=== PATIENT | female | born 1995 | race Caucasian/White ===

== ENCOUNTER 2017-05-05 06:14 | Emergency (ER) | payer BC ==
[~2017-05-05] VITALS: Ht 170.2 cm; Wt 60.0 kg
[~2017-05-05 06:14] MED LIST: MOTRIN 600600 MG/TAB PO; PRENATAL1 TA1 PO
[2017-05-05] MEDS ORDERED: ZOFRAN ODT4 MG PO (06:19)
[2017-05-05 07:08] LABS: BASO % 0.4 % (0.0-2.0); EOS % 0.4 % (0-4.0); GRAN # 6.3 (1.4-6.5); GRAN % 73.2 % (42.2-75.2); HEMOGLOBIN 12.4 g/dl (12.5-16.0); LYMPH # 1.7 (1.2-3.4); LYMPH % 19.6 % (20.0-51.0); MEAN CELL VOLUME 85 fl (80.0-100.0); MEAN CORPUSCULAR HEMOGLOBIN 31 pg (27.0-31.0); MEAN CORPUSCULAR HGB CONC 36 g/dl (33.0-37.0); MONO # 0.5 (0.1-0.6); PLATELET COUNT 230 K/mm3 (130-400); RED BLOOD COUNT 4.05 M/mm3 (4.10-5.30); REDCELL DISTRIBUTION WIDTH-CV 12.2 % (11.5-14.5); WHITE BLOOD COUNT 8.5 K/mm3 (4.8-10.8)
[2017-05-05 07:09] LABS: HEMATOCRIT 34.4 % (37.0-47.0)
[2017-05-05 07:12] VITALS: BP 111/73; PULSE 104; TEMP 98.8
== END 2017-05-05 07:22 | disposition home or self-care (01) ==
LOC: COL.ER 06:14
PROVIDERS: Family Medicine
DX: O20.0 Threatened abortion (principal); Z3A.12 12 weeks gestation of pregnancy

== ENCOUNTER 2017-05-11 09:14 | Outpatient (CLI) | payer BC ==
[~2017-05-11] VITALS: Ht 170.2 cm; Wt 60.9 kg
[~2017-05-11 09:14] MED LIST changes: +ZOFRAN ODT4 MG PO
[2017-05-11 09:31] VITALS: BP 116/67; PULSE 76; TEMP 98.9
[2017-05-11 11:18] LABS: PH 7 (5-8); SQUAMOUS EPITHELIAL 0-2 /hpf; URINE APPEARANCE Clear; URINE BACTERIA Rare /hpf; URINE BILIRUBIN Negative (NEGATIVE); URINE BLOOD Negative (NEGATIVE); URINE COLOR Straw; URINE GLUCOSE Negative (NEGATIVE); URINE KETONE Trace (NEGATIVE); URINE RBC 0-2 /hpf; URINE UROBILINOGEN Negative (NEGATIVE); URINE WBC 0-2 /hpf
[2017-05-11 11:28] LABS: AMPHETAMINE URINE NEGATIVE; BARBITURATES URINE NEGATIVE; BENZODIAZEPINES URINE NEGATIVE; BUPRENORPHINE URINE NEGATIVE; METHADONE URINE NEGATIVE; OPIATES URINE NEGATIVE; OXYCODONE URINE NEGATIVE; PHENCYCLIDINE URINE NEGATIVE; PROPOXYPHENE URINE NEGATIVE; THC CANNABINOIDS URINE NEGATIVE
== END 2017-05-11 11:20 | disposition home or self-care (01) ==
LOC: LDRO 09:14
PROVIDERS: Obstetrics & Gynecology
DX: O46.92 Antepartum hemorrhage, unspecified, second trimester (principal); O30.041 Twin pregnancy, dichorionic/diamniotic, first trimester; Z3A.13 13 weeks gestation of pregnancy

== ENCOUNTER 2017-06-16 18:15 | Emergency (ER) | payer BC ==
[~2017-06-16] VITALS: Ht 170.2 cm; Wt 62.7 kg
[2017-06-16 18:30] VITALS: BP 119/66; PULSE 109; TEMP 101.7
[2017-06-17] MEDS ORDERED: CEPHALEXIN500 M1 PO (10:49)
== END 2017-06-16 20:08 | disposition home or self-care (01) ==
LOC: COL.ER 18:15
DX: M54.5 Low back pain (principal)

== ENCOUNTER 2017-06-17 07:18 | Emergency (ER) | payer BC ==
[~2017-06-17] VITALS: Ht 170.2 cm; Wt 62.7 kg
[2017-06-17 08:37] LABS: BASO % 0.2 % (0.0-2.0); GRAN # 13.2 (1.4-6.5); GRAN % 87.4 % (42.2-75.2); LYMPH # 0.5 (1.2-3.4); LYMPH % 3.4 % (20.0-51.0); MEAN CELL VOLUME 89 fl (80.0-100.0); MEAN CORPUSCULAR HGB CONC 35 g/dl (33.0-37.0); MEAN PLATELET VOLUME 9.7 fl (7.4-10.4); MONO # 1.3 (0.1-0.6); MONO % 8.6 % (1.7-9.3); PLATELET COUNT 216 K/mm3 (130-400); RED BLOOD COUNT 3.33 M/mm3 (4.10-5.30); REDCELL DISTRIBUTION WIDTH-CV 13.2 % (11.5-14.5); WHITE BLOOD COUNT 15.1 K/mm3 (4.8-10.8)
[2017-06-17 08:44] LABS: PH 5 (5-8); URINE APPEARANCE Cloudy; URINE BACTERIA Occasional /hpf; URINE BILIRUBIN Negative (NEGATIVE); URINE BLOOD 1+ (NEGATIVE); URINE COLOR Yellow; URINE GLUCOSE Negative (NEGATIVE); URINE KETONE Trace (NEGATIVE); URINE UROBILINOGEN Negative (NEGATIVE)
[2017-06-17 08:45] LABS: URINE WBC >50 /hpf
[2017-06-17 08:50] LABS: ADJUSTED CALCIUM 9.5 mg/dL (8.4-10.2); ALBUMIN 3.5 gm/dL (3.5-5.0); BILIRUBIN,TOTAL 0.9 mg/dL (0.0-1.0); CALCIUM 9.1 mg/dL (8.4-10.2); CREATININE, serum 0.55 mg/dL (0.52-1.25); HEMATOCRIT 29.6 % (37.0-47.0); HEMOGLOBIN 10.4 g/dl (12.5-16.0); MEAN CORPUSCULAR HEMOGLOBIN 31 pg (27.0-31.0); POTASSIUM 3.1 mmol/L (3.4-5.0)
[2017-06-17] MEDS ORDERED: CEPHALEXIN500 M1 PO (10:49)
[2017-06-17 11:14] VITALS: BP 98/59; PULSE 94; TEMP 97.6
== END 2017-06-17 11:15 | disposition home or self-care (01) ==
LOC: COL.ER 07:18
PROVIDERS: Emergency Medicine
DX: O23.42 Unspecified infection of urinary tract in pregnancy, second trimester (principal); O26.892 Other specified pregnancy related conditions, second trimester; N12 Tubulo-interstitial nephritis, not specified as acute or chronic; N39.0 Urinary tract infection, site not specified; F17.210 Nicotine dependence, cigarettes, uncomplicated; Z3A.18 18 weeks gestation of pregnancy
CPT/HCPCS: J0696; J2765; J3010; J7030

== ENCOUNTER 2017-10-14 18:50 | Inpatient (IN) | payer BC, MEDICAID ==
[2017-10-14] VITALS (15 sets, daily range): BP systolic 115–144; BP diastolic 70–94; PULSE 86–118; TEMP 97.9–98.6
[~2017-10-14] VITALS: Ht 170.2 cm; Wt 80.9 kg
[~2017-10-14 18:50] MED LIST changes: +CEPHALEXIN500 M1 PO
[2017-10-14 21:35] LABS: BASO % 0.3 % (0.0-2.0); EOS % 0.3 % (0-4.0); GRAN # 9.2 (1.4-6.5); GRAN % 77.5 % (42.2-75.2); LYMPH # 1.8 (1.2-3.4); LYMPH % 15.4 % (20.0-51.0); MEAN CELL VOLUME 85 fl (80.0-100.0); MEAN CORPUSCULAR HGB CONC 32 g/dl (33.0-37.0); MEAN PLATELET VOLUME 10.1 fl (7.4-10.4); MONO # 0.7 (0.1-0.6); MONO % 5.7 % (1.7-9.3); PLATELET COUNT 308 K/mm3 (130-400); RED BLOOD COUNT 3.67 M/mm3 (4.10-5.30); REDCELL DISTRIBUTION WIDTH-CV 12.9 % (11.5-14.5)
[2017-10-14 21:40] LABS: HEMATOCRIT 31.3 % (37.0-47.0); HEMOGLOBIN 10.1 g/dl (12.5-16.0); MEAN CORPUSCULAR HEMOGLOBIN 28 pg (27.0-31.0)
[2017-10-15] VITALS (14 sets, daily range): BP systolic 107–132; BP diastolic 66–93; PULSE 68–97; TEMP 97.5–98.1
[2017-10-15 07:23] LABS: BASO % 0.2 % (0.0-2.0); EOS % 0.1 % (0-4.0); GRAN # 12.7 (1.4-6.5); LYMPH # 1.5 (1.2-3.4); MEAN CELL VOLUME 85 fl (80.0-100.0); MEAN CORPUSCULAR HGB CONC 34 g/dl (33.0-37.0); MEAN PLATELET VOLUME 9.6 fl (7.4-10.4); MONO # 0.9 (0.1-0.6); PLATELET COUNT 249 K/mm3 (130-400); RED BLOOD COUNT 3.24 M/mm3 (4.10-5.30); REDCELL DISTRIBUTION WIDTH-CV 12.9 % (11.5-14.5)
[2017-10-15 07:36] LABS: HEMATOCRIT 27.5 % (37.0-47.0); HEMOGLOBIN 9.2 g/dl (12.5-16.0); MEAN CORPUSCULAR HEMOGLOBIN 28 pg (27.0-31.0)
[2017-10-15] MEDS ORDERED: IBU600 MG PO (11:12)
[2017-10-15] MEDS ORDERED: PERCOCET 325 MG1 TA2 PO (11:12)
[2017-10-15] MEDS ORDERED: FERROUS SU325 MG/TAB PO (11:12)
[2017-10-16 07:25] VITALS: BP 121/75; PULSE 80; TEMP 98.4
[2017-10-16 17:00] VITALS: BP 118/67; PULSE 87; TEMP 97.7
[2017-10-16 21:20] VITALS: BP 127/77; PULSE 82; TEMP 99.2
[2017-10-17 07:30] VITALS: BP 119/73; PULSE 78; TEMP 98.1
== END 2017-10-17 16:45 | disposition home or self-care (01) | DRG 765 ==
LOC: LDRO 18:50 → LDR 21:26 → OB 21:26
PROVIDERS: Obstetrics & Gynecology
PROC: 10D00Z1 Extraction of Products of Conception, Low, Open Approach (ICD-10-PCS; principal; 2017-10-14)
DX: O60.14X1 Preterm labor third trimester with preterm delivery third trimester, fetus 1 (principal); O30.043 Twin pregnancy, dichorionic/diamniotic, third trimester; O32.1XX1 Maternal care for breech presentation, fetus 1; O60.14X2 Preterm labor third trimester with preterm delivery third trimester, fetus 2; O32.1XX2 Maternal care for breech presentation, fetus 2; O69.81X1 Labor and delivery complicated by cord around neck, without compression, fetus 1; O69.81X2 Labor and delivery complicated by cord around neck, without compression, fetus 2; O99.02 Anemia complicating childbirth; D64.9 Anemia, unspecified; Z3A.35 35 weeks gestation of pregnancy; Z37.2 Twins, both liveborn
CPT/HCPCS: J0690; J1885; J2175; J2270; J2370; J2405; J2590; J3105; J7120